=== PATIENT | male | born 1960 | race African-American/Black ===

== ENCOUNTER 2018-04-02 18:00 | Emergency (ER) | payer OTHER, MEDICAID ==
[~2018-04-02] VITALS: Ht 190.5 cm; Wt 119.0 kg
[2018-04-02 20:38] VITALS: BP 125/86
== END 2018-04-02 20:39 | disposition home or self-care (01) ==
LOC: ER 19:21
DX: S90.822A Blister (nonthermal), left foot, initial encounter (principal); J44.9 Chronic obstructive pulmonary disease, unspecified; I50.9 Heart failure, unspecified; N28.9 Disorder of kidney and ureter, unspecified; Z86.19 Personal history of other infectious and parasitic diseases; X58.XXXA Exposure to other specified factors, initial encounter; Y93.89 Activity, other specified; Y92.89 Other specified places as the place of occurrence of the external cause
CPT/HCPCS: 99283